=== PATIENT | male | born 1995 | race Hispanic/Latino ===

== ENCOUNTER 2018-10-09 15:13 | Emergency (ER) | payer OTHER ==
[2018-10-09] MEDS ORDERED: SIMETHICONE 80 MG TAB.CHEW ONE (15:31)
[2018-10-09] MEDS ORDERED: DICYCLOMINE HCL 20 MG TAB ONE (15:32)
[2018-10-09 15:36] LABS: BASOPHILS % (AUTO) 0.3 % (0.0-5.0); HEMATOCRIT 46.3 % (42-54); RED BLOOD CELL COUNT(AUTO) 5.28 MIL/uL (4.50-6.20); WHITE BLOOD COUNT (AUTO) 6.3 K/uL (4.8-10.8)
[2018-10-09 15:42] LABS: POTASSIUM 4.1 mmol/L (3.5-5.1)
[2018-10-09 15:46] LABS: ALBUMIN 4.7 g/dL (3.5-5.0); BILIRUBIN,TOTAL 0.7 mg/dL (0.2-1.0); TOTAL PROTEIN, SERUM 8.5 g/dL (6.0-8.3)
[2018-10-09 16:08] LABS: EOSINOPHILS % (AUTO) 0.4 % (0.0-8.0); LYMPHOCYTES % (AUTO) 19.8 % (21.0-51.0); MEAN CORPUSCULAR HEMOGLOBIN 30.6 pg (27.0-33.0); MEAN CORPUSCULAR HGB CONC 34.9 g/dL (32.0-36.0); MEAN CORPUSCULAR VOLUME 87.6 fL (79-99); MONOCYTES % (AUTO) 5.9 % (3.0-13.0); NEUTROPHILS % (AUTO) 73.6 % (40.0-77.0); PLATELET COUNT (AUTO) 187 K/uL (130-400); RED CELL DISTRIBUTION WIDTH 12.7 % (11.0-15.5)
== END 2018-10-09 16:31 | disposition home or self-care (01) ==
LOC: EDH 15:13
DX: R19.7 Diarrhea, unspecified (principal); R10.84 Generalized abdominal pain; Z88.6 Allergy status to analgesic agent
CPT/HCPCS: 36415; 80053; 83690; 85025